=== PATIENT | female | born 1965 | race African-American/Black ===

== ENCOUNTER 2023-10-01 13:55 | Emergency (ER) | payer MEDICAID, OTHER ==
[~2023-10-01] VITALS: Ht 170.2 cm; Wt 93.0 kg
[2023-10-01 13:56] VITALS: O2SAT 99
[2023-10-01 16:53] LABS: BASOPHILS % 1.2 % (0.0-2.0); DIFFERENTIAL COMMENT 0; HEMATOCRIT. 40.4 % (36.0-48.0); HEMOGLOBIN. 13.7 g/dL (12.0-16.0); LYMPHOCYTES % 39.5 % (20.0-50.0); MEAN CORPUSCULAR HEMOGLOBIN 34.1 pg (28.0-32.0); MEAN CORPUSCULAR HGB CONC 33.9 g/dL (31.0-37.0); MEAN CORPUSCULAR VOLUME 100.6 fL (81.0-99.0); MEAN PLATELET VOLUME 7.8 fl (7.4-10.4); MONOCYTES % 8.2 % (2.0-8.0); NEUTROPHILS % 50.1 % (40.0-76.0); PLATELET 314 x1000/uL (130-400); RED BLOOD CELL COUNT 4.01 mill/uL (4.2-5.4); RED CELL DISTRIBUTION WIDTH 13.8 % (11.6-14.6); WHITE BLOOD COUNT 7.7 x1000/uL (4.5-11.0)
[2023-10-01 16:59] LABS: CHLORIDE 104 mEq/L (98-107); POTASSIUM 4.5 mEq/L (3.5-5.1); SODIUM 138 mEq/L (136-145)
[2023-10-01 17:00] LABS: CALCIUM 9.4 mg/dL (8.7-10.4); CARBON DIOXIDE 30 mEq/L (21-32)
[2023-10-01 17:05] LABS: CREATININE 1.3 mg/dL (0.6-1.0); GLUCOSE 91 mg/dL (70-105); UREA NITROGEN BLOOD 18 mg/dL (9-23)
[2023-10-01 17:07] LABS: TROPONIN I HIGH SENSITIVITY 6 ng/L (3.0-34)
[2023-10-01] MEDS ORDERED: ACET-2708 MT (17:17)
[2023-10-01] MEDS: ACETAMINOPHEN 325MG TABLET PO ONE (17:26)
[2023-10-01 19:12] VITALS: BP 156/83; PULSE 64; RESP 18; TEMP 98.2
[2023-10-01 19:20] LABS: TROPONIN I HIGH SENSITIVITY 6 ng/L (3.0-34)
== END 2023-10-01 19:15 | disposition home or self-care (01) ==
LOC: ER 13:55
DX: R07.89 Other chest pain (principal)
CPT/HCPCS: 80048; 83880; 85025; 84484; 36415; 71045; 93005; 99285; Z7610 ×4